=== PATIENT | female | born 1990 | race Caucasian/White ===

== ENCOUNTER 2022-05-29 10:02 | Outpatient (CLI) | payer BC, SELFPAY ==
[2022-05-29 17:23] LABS: Anion Gap 5 mmol/L (8-16); Blood Urea Nitrogen 13 mg/dL (7-17); Carbon Dioxide 31 mmol/L (22-30); Chloride 102 mmol/L (98-107); Estimated Glomerular Filt Rate > 60; Glucose 132 mg/dL (65-110); HDL Direct 52 mg/dL; Potassium 4.3 mmol/L (3.4-5.0); Sodium 138 mmol/L (137-145)
[2022-05-29 17:34] LABS: LDL Cholesterol Direct 108 mg/dL
[2022-05-29 18:02] LABS: MALB Creatinine Ratio 11.8 mg/g (0-30); Microalbumin Urine Random 6.5 mg/L (0-16.7)
[2022-05-29 18:13] LABS: Free T4 Free Thyroxine 0.92 ng/mL (0.78-2.19)
== END 2022-05-29 10:03 | disposition home or self-care (01) ==
LOC: ANHWCLAB 10:04
PROVIDERS: Visit Provider Internal Medicine Endocrinology, Diabetes & Metabolism
DX: E10.319 Type 1 diabetes mellitus with unspecified diabetic retinopathy without macular edema (principal); Z96.41 Presence of insulin pump (external) (internal); Z71.3 Dietary counseling and surveillance
CPT/HCPCS: 36415; 80048; 82043; 83718; 83721; 84439; 84443

== ENCOUNTER 2023-04-24 00:16 | Day surgery (SDC) | payer BC, SELFPAY ==
[2023-04-15 14:47] VITALS: BMI 37.3
--- NOTE | 2023-04-15 15:09 | PC.NURSE ---
Patient states she will watch her blood sugars on the day of the prep and is able to adjust her Insulin Pump accordingly.
--- NOTE | 2023-04-22 09:06 | SUR.PREOP ---
Patient called regarding upcoming procedure. Voicemail left regarding appointment times.
[2023-04-24 13:21] VITALS: BP 117/69; PULSE 115; RESP 18; TEMP 36.3; O2SAT 100; BMI 33.1
[2023-04-24 13:33] LABS: Glucose Point of Care 291 mg/dl (65-105)
[2023-04-24] MEDS: LACTATED RINGERS 1,000 ML 150 ML IV CONT (13:50)
--- NOTE | 2023-04-24 13:59 | WPDANESEPPF ---
Anes - Initial Pre Proc Eval Procedure: Operation Date: 04/24/23 14:30 Proposed Procedures p Flexible Sigmoidoscopy - Niles Haddad MD Date/Time: 04/24/23 13:59 Surgeon: Niles Haddad MD Pre Op Diagnosis: Other specified diseases of anus and rectum Patient Data Age: 32 Gender: F Height: 1.68 m Weight: 93.1 kg Last Vital Signs Temp 97.4 F L 04/24/23 13:21 Pulse 115 H 04/24/23 13:21 Resp 18 04/24/23 13:21 BP 117/69 04/24/23 13:21 Pulse Ox 100 04/24/23 13:21 O2 Del Method Room Air 04/24/23 13:21 Allergies Allergy/AdvReac Type Severity Reaction Status Date / Time No Known Allergies Allergy Verified 04/24/23 13:33 Home Medications Medication Instructions Recorded Confirmed Type subcutaneous insulin pump (MiniMed #1 ea 08/30/19 04/24/23 History 670G Insulin Pump) blood sugar diagnostic (Contour #600 ea 08/22/21 04/24/23 Rx Next Test Strips) blood sugar diagnostic (OneTouch #400 ea 11/26/21 04/24/23 Rx Verio test strips) lancets 30 gauge (OneTouch Delica #400 ea 11/26/21 04/24/23 Rx Plus Lancet) insulin lispro 100 unit/mL 110 unit (1.1 mL) continuous 03/30/23 04/24/23 Rx subcutaneous solution (Humalog subcutaneous infusion DAILY 90 U-100 Insulin) days #100 mL lisinopril 2.5 mg tablet 2.5 mg PO DAILY #90 tabs 03/30/23 04/24/23 Rx glucagon 1 mg/0.2 mL subcutaneous 1 mg subcut ONCE PRN Hypoglycemia 04/15/23 04/24/23 History auto-injector (Gvoke HypoPen 2-Pack) lidocaine 2 %-hydrocortisone 2 % 1 applic RECTAL BID PRN Hemorrhoids 04/15/23 04/24/23 History (7 gram) rectal kit cream and wipes Laboratory Tests 04/24/23 13:29 POC Capillary Glucose 291 H mg/dl (65-105) Patient hx anesthesia problems: none Family hx anesthesia problems: none Results Review: All pre-operative results and documents have been reviewed as part of the pre-operative evaluation. [facility] Past Medical History Medical History (Updated 04/07/23 @ 09:53 by BRENDAN Short) Anxiety BMI greater than 30 Constipation Depression Diabetic peripheral neuropathy Hyperlipidemia LDL goal <[address] Rectal pain Type 1 diabetes mellitus with hyperglycemia, with long-term current use of insulin Surgical History Surgical History No pertinent past surgical history Family History Family History Mother Family history of mental disorder Depression Family history of arthritis Father Family history of arthritis Family history of hearing loss Grandparent Family history of congestive heart failure Social History Social History Smoking status: Never smoker Alcohol intake: never Substance use: never Substance use type: does not use Lack of Transportation: No Lack of Food: Never True Current Housing: I Have Housing Concerned About Future Housing: No Difficulty Paying Gas/Electric Bills: No Difficulty Paying for Meds: No Currently Unemployed: No Education: Associate Degree Difficulty w/ Childcare or Family Care: No Living arrangements: with family Spiritual care concerns: No Anes - Eval Final PreProcedure Day of Procedure 04/24/23 13:59 Patient weight: obese Heart: regular rate and rhythm Lungs: clear to auscultation Airway: Mallampati scale class II Neurological: alert and oriented Last oral intake: >/= 8 hours ASA classification: III Emergent: no Anesthetic plan: proceed Anesthesia type and monitoring: general GIVS and standard monitoring Results Review: All pre-operative results and documents have been reviewed as part of the pre-operative evaluation. Informed Consent: The patient's anesthetic plan and its attendant risks and benefits were discussed with the patient/family/POA. Questions were solicited and answers prov
--- NOTE | 2023-04-24 14:38 | WPDHPUPDATE1 ---
History and Physical Update Update Date/Time: 04/24/23 14:38 History and Physical has been reviewed, including an updated exam of the patient. There are NO changes in the patient's condition. Risks, benefits, and alternatives have been discussed and questions answered. Patient agrees to proceed with procedure.
--- NOTE | 2023-04-24 14:50 | SUR.OPER ---
Red trudy noted on patients left buttock.
[2023-04-24 15:00] VITALS: BP 108/58; PULSE 97; RESP 20; O2SAT 97
[2023-04-24 15:10] VITALS: BP 108/62; PULSE 96; RESP 24; O2SAT 96
[2023-04-24 15:20] VITALS: BP 103/65; PULSE 87; RESP 23; O2SAT 100
[2023-04-24 16:11] LABS: Glucose Point of Care 223 mg/dl (65-105)
== END 2023-04-24 15:31 | disposition home or self-care (01) ==
PROVIDERS: PCP Nurse Practitioner Family; Visit Provider Internal Medicine Gastroenterology
PROC: 0DJD8ZZ Inspection of Lower Intestinal Tract, Via Natural or Artificial Opening Endoscopic (ICD-10-PCS; CPT 45330; principal; 2023-04-24 14:30)
DX: K60.2 Anal fissure, unspecified (principal); E10.42 Type 1 diabetes mellitus with diabetic polyneuropathy; E66.9 Obesity, unspecified; Z68.33 Body mass index [BMI] 33.0-33.9, adult; Z96.41 Presence of insulin pump (external) (internal); Z79.4 Long term (current) use of insulin
CPT/HCPCS: 45378; 82948; J2704; J7120